=== PATIENT | male | born 1975 | race Caucasian/White ===

== ENCOUNTER 2017-03-28 08:22 | Emergency (ER) | payer OTHER ==
[~2017-03-28] VITALS: Ht 175.3 cm; Wt 102.7 kg
[2017-03-28 09:57] VITALS: BP 156/99
== END 2017-03-28 09:57 | disposition home or self-care (01) ==
LOC: ED 08:22
DX: M54.89 Other dorsalgia (principal); M10.9 Gout, unspecified
CPT/HCPCS: J1885